=== PATIENT | female | born 1975 | race Caucasian/White ===

== ENCOUNTER 2019-07-13 08:35 | Outpatient (CLI) | payer BC, OTHER ==
--- NOTE | 2019-07-13 09:24 | MMO ---
Bilateral MAMMO Bilat Screen [facility]. CLINICAL HISTORY: Patient is 43 years old and is seen for screening. The patient has no family history of breast cancer. The patient has no personal history of cancer. VIEWS: The views performed were: bilateral craniocaudal with tomosynthesis and bilateral mediolateral oblique with tomosynthesis. This study has been interpreted with the assistance of computer-aided detection. MAMMOGRAM FINDINGS: There are scattered fibroglandular densities. There is a focal asymmetry seen in the anterior region of the right breast at 12 o'clock. In the left breast, there are no suspicious masses, calcifications or areas of architectural distortion. IMPRESSION: FOCAL ASYMMETRY IN THE RIGHT BREAST REQUIRES ADDITIONAL EVALUATION. RECOMMEND DIAGNOSTIC MAMMOGRAM. ULTRASOUND MAY ALSO PROVE USEFUL AT RECALL. THE RESULTS OF THIS EXAM WERE SENT TO THE PATIENT. ACR BI-RADS Category 0 - Incomplete: Need additional imaging evaluation. [facility] will notify the patient of the need for additional imaging services. MAMMOGRAPHY NOTE: 1. A negative mammogram report should not delay a biopsy if a dominant of clinically suspicious mass is present. 2. Approximately 10% to 15% of breast cancers are not detected by mammography. 3. Adenosis and dense breasts may obscure an underlying neoplasm. Reported by: MAGALI RODRÍGUEZ MD Electonically Signed: [id number]
== END 2019-07-13 08:36 | disposition home or self-care (01) ==
LOC: BICMAMMO 08:35
PROVIDERS: ATTEND Family Medicine
DX: Z12.31 Encounter for screening mammogram for malignant neoplasm of breast (principal); N64.89 Other specified disorders of breast
CPT/HCPCS: 77063; 77067

== ENCOUNTER 2019-07-20 09:32 | Outpatient (CLI) | payer BC ==
--- NOTE | 2019-07-20 10:19 | MMO ---
Right Breast MAMMO Unilat Diag [facility]. CLINICAL HISTORY: Patient is 43 years old and is seen for additional evaluation requested from prior study. The patient has no family history of breast cancer. The patient has no personal history of cancer. VIEWS: The views performed were: right craniocaudal spot compression with tomosynthesis; right mediolateral oblique spot compression with tomosynthesis; and right mediolateral with tomosynthesis. FILMS COMPARED: The present examination has been compared to a prior imaging study performed at [facility] on 07/13/2019. This study has been interpreted with the assistance of computer-aided detection. MAMMOGRAM FINDINGS: There are scattered fibroglandular densities. There is a focal asymmetry seen in the upper-outer region of the right breast. Tomosynthesis compression images show the abnormality to represent superimpostion of normal breast parenchyma. There are no suspicious masses, suspicious calcifications, or new areas of architectural distortion. IMPRESSION: THERE IS NO MAMMOGRAPHIC EVIDENCE OF MALIGNANCY. A ROUTINE FOLLOW-UP MAMMOGRAM IN 1 YEAR IS RECOMMENDED. THE RESULTS OF THIS EXAM WERE SENT TO THE PATIENT. ACR BI-RADS Category 2 - Benign finding MAMMOGRAPHY NOTE: 1. A negative mammogram report should not delay a biopsy if a dominant of clinically suspicious mass is present. 2. Approximately 10% to 15% of breast cancers are not detected by mammography. 3. Adenosis and dense breasts may obscure an underlying neoplasm. Reported by: NATHANIEL CORDERO MD Electonically Signed: [id number]
== END 2019-07-20 09:33 | disposition home or self-care (01) ==
LOC: BICMAMMO 09:32
PROVIDERS: ATTEND Family Medicine
DX: R92.2 Inconclusive mammogram (principal)
CPT/HCPCS: G0279

== ENCOUNTER 2019-08-11 09:26 | Outpatient (CLI) | payer BC ==
--- NOTE | 2019-08-11 11:57 | RAD ---
HYSTEROSALPINGOGRAM: CLINICAL HISTORY: Evaluation of prior tubal ligation PROCEDURE: Informed consent was obtained. Utilizing standard sterile speculum exam, the cervix was lo calized and then sterilized with Betadine solution. A small catheter was then utilized to cannulate the endometrial canal, after which a low pressure instillation of contrast was performed, with subseq uent radiographic imaging. No procedural complications were present. Patient tolerated the procedure well. FINDINGS: Endometrial cavity: Unremarkable Fallopian tubes: There is thin linear contrast opacification of proximal to mid fallopian tubes bilat erally. The distal fallopian tubes, and the fimbria are not opacified. There is no free spill into the pelvic cavity. IMPRESSION: Contrast opacification of proximal to mid bilateral fallopian tubes. No contrast opacification of the distal aspect of the fallopian tubes, or evidence of free spill into the pelvic cavity.
== END 2019-08-11 09:27 | disposition home or self-care (01) ==
LOC: RAD 09:26
PROVIDERS: ATTEND Obstetrics & Gynecology
DX: Z31.41 Encounter for fertility testing (principal); N83.8 Other noninflammatory disorders of ovary, fallopian tube and broad ligament
CPT/HCPCS: 58340; 74740

== ENCOUNTER 2023-11-10 18:26 | Observation (INO) | payer BC ==
[2023-11-10 19:12] LABS: #Monocytes 0.4 thou/uL (0.11-0.59); %Basophils 0.1 % (0.0-1.0); %Lymphocytes 13.3 % (21.0-51.0); %Monocytes 3.9 % (0.0-10.0); %Neutrophils 82.4 % (42.0-75.0); Hematocrit 46.8 % (36.0-47.0); Hemoglobin 15.6 g/dL (12.0-16.0); Mean Corpuscular HGB CONC 33.3 g/dL (32.0-36.0); Mean Corpuscular Hemoglobin 29.3 pg (27.0-31.0); Mean Platelet Volume 11.6 fL (7.4-10.4); Platelet Count 251 10x3/uL (130-400); RBC Distribution Width 13.1 % (11.5-14.5); Red Blood Cell (RBC) Count 5.32 mill/uL (4.20-5.40); White Blood Cell (WBC) Count 10.9 10x3/uL (4.8-10.8)
[2023-11-10 19:25] LABS: BHCG - Serum Negative (NEGATIVE); Pregs Control Background? CLEAR/WHITE (CLR/WHITE); Pregs Control Bar Appear? YES (CONTROL BAR)
[2023-11-10 19:35] LABS: ALT (SGPT) 48 U/L (8-55); AST (SGOT) 33 U/L (5-34); Albumin 4.6 g/dL (3.5-5.0); Alkaline Phosphatase 103 U/L (40-110); Anion Gap 11 mmol/L (10-20); BUN (Urea Nitrogen) 10 mg/dL (7.0-18.7); Bilirubin, Total 0.5 mg/dL (0.2-1.2); Calc. Creatinine Clearance 0 mL/min (70-130); Calcium 10.4 mg/dL (7.8-10.44); Carbon Dioxide 25 mmol/L (22-29); Chloride 105 mmol/L (98-107); Estimated GFR 103; Globulin 3.6 g/dL (2.4-3.5); Glucose 114 mg/dL (70-105); Potassium 4.3 mmol/L (3.5-5.1); Protein, Total 8.2 g/dL (6.0-8.3); Sodium 137 mmol/L (136-145)
[2023-11-10 21:06] LABS: Bacteria/HPF 3+ HPF (None Seen); Bilirubin Negative (Negative); Blood, Urine Negative (Negative); CAUTI Indications for Culture Pelvic or flank pain; Clarity Clear (Clear); Glucose, Urine (Dipstick) Normal (Negative); Ketone, Urine 100 mg/dL (Negative); Leukocyte Negative Leu/uL (Negative); Nitrite Negative (Negative); Protein, Urine (Dipstick) 10 mg/dL (Neg-Trace); RBC/HPF 0-3 HPF (0-3); Specific Gravity, Urine 1.026 (1.002-1.036); Urobilinogen Normal mg/dL (Less than 2); WBC/HPF 0-3 HPF (0-3)
[2023-11-10 21:08] LABS: Urine Culture Reflex No No
[2023-11-10] MEDS ORDERED: Morphine 4 MG/ML VIAL ONE (21:27)
[2023-11-10] MEDS ORDERED: Ondansetron PF 4 MG/2 ML Vial ONE (21:27)
[2023-11-10] MEDS ORDERED: Ketorolac Tromethamine 30 MG (1 mL) VIAL ONE (21:51)
[2023-11-10 22:26] LABS: Troponin I Less than 0.010 ng/mL (< 0.028)
[2023-11-11] MEDS ORDERED: Morphine 4 MG/ML VIAL ONE (01:03)
[2023-11-11] MEDS ORDERED: Ondansetron PF 4 MG/2 ML Vial ONE ×2 (01:03→14:02)
[2023-11-11] MEDS ORDERED: Morphine 4 MG/ML VIAL SLOW IVP PRN ×2 (04:24→15:12)
[2023-11-11] MEDS ORDERED: Acetaminophen 325 MG TAB PO PRN (04:30)
[2023-11-11] MEDS ORDERED: Ondansetron PF 4 MG/2 ML Vial IVP PRN (04:30)
[2023-11-11 04:53] VITALS: BMI 41.8
[2023-11-11 07:33] LABS: #Monocytes 0.9 thou/uL (0.11-0.59); #Neutrophils 9.3 thou/uL (1.40-6.50); %Basophils 0.1 % (0.0-1.0); %Lymphocytes 17.4 % (21.0-51.0); %Monocytes 7.2 % (0.0-10.0); %Neutrophils 74.9 % (42.0-75.0); Hematocrit 40.7 % (36.0-47.0); Hemoglobin 13.7 g/dL (12.0-16.0); Mean Corpuscular HGB CONC 33.7 g/dL (32.0-36.0); Mean Corpuscular Volume 89.1 fl (78.0-98.0); Mean Platelet Volume 11.6 fL (7.4-10.4); Platelet Count 237 10x3/uL (130-400); RBC Distribution Width 13.2 % (11.5-14.5); Red Blood Cell (RBC) Count 4.57 mill/uL (4.20-5.40); White Blood Cell (WBC) Count 12.4 10x3/uL (4.8-10.8)
[2023-11-11 07:51] LABS: ALT (SGPT) 39 U/L (8-55); AST (SGOT) 23 U/L (5-34); Albumin 4.2 g/dL (3.5-5.0); Alkaline Phosphatase 86 U/L (40-110); Anion Gap 11 mmol/L (10-20); BUN (Urea Nitrogen) 12 mg/dL (7.0-18.7); Bilirubin, Total 0.4 mg/dL (0.2-1.2); Calc. Creatinine Clearance 162 mL/min (70-130); Calcium 9.6 mg/dL (7.8-10.44); Carbon Dioxide 24 mmol/L (22-29); Chloride 106 mmol/L (98-107); Estimated GFR 106; Glucose 110 mg/dL (70-105); Potassium 3.4 mmol/L (3.5-5.1); Protein, Total 7.2 g/dL (6.0-8.3); Sodium 138 mmol/L (136-145)
[2023-11-11] MEDS ORDERED: Piperacillin/Tazobactam 3.375 GM in Sodium Chloride 0.9% 100 ML IVPB SCH (08:00)
[2023-11-11] MEDS: metroNIDAZOLE 500 MG in Premix 1 BAG IVPB SCH ×3 (09:53→21:01)
[2023-11-11] MEDS: Lactated Ringer's 1,000 ML IV SCH ×3 (09:53→20:14)
[2023-11-11] MEDS ORDERED: Bupivacaine 0.25% HCL 30 ML VIAL ONE (13:17)
[2023-11-11] MEDS ORDERED: EPINEPHrine 1 MG/ML VIAL ONE (13:17)
[2023-11-11] MEDS ORDERED: PROPOFOL 20 ML ONE (13:27)
[2023-11-11] MEDS ORDERED: SUCCINYLCHOLINE/SOD CL,ISO/PF 200 MG/10 ML SYRINGE FS ONE (13:32)
[2023-11-11] MEDS ORDERED: Rocuronium Bromide 10 MG/ML (10ML VIAL) ONE (13:50)
[2023-11-11] MEDS ORDERED: diphenhydrAMINE 50 MG/ML VIAL ONE (13:50)
[2023-11-11] MEDS: Piperacillin/Tazobactam 3.375 GM in Sodium Chloride 0.9% 100 ML IVPB SCH ×2 (14:01→21:02)
[2023-11-11] MEDS ORDERED: Dexamethasone 20 MG/5 ML VIAL ONE (14:02)
[2023-11-11] MEDS ORDERED: fentaNYL PF 100 MCG/2 ML SYRINGE ONE (14:02)
[2023-11-11] MEDS ORDERED: Metoclopramide HCl 10 MG (2 mL) VIAL ONE (14:02)
[2023-11-11] MEDS ORDERED: Ketorolac Tromethamine 30 MG (1 mL) VIAL ONE (14:02)
[2023-11-11] MEDS ORDERED: SUGAMMADEX SODIUM 200 MG/2 ML VIAL ONE (14:10)
[2023-11-11] MEDS ORDERED: HYDROcodone/Acetaminophen 5/325 mg Tablet PO PRN (15:12)
[2023-11-11] MEDS ORDERED: HYDROmorphone 2 MG/ML VIAL SLOW IVP PRN (15:19)
[2023-11-11] MEDS ORDERED: Promethazine HCl 25 MG/ML VIAL IM PRN (15:19)
[2023-11-11] MEDS ORDERED: Ondansetron HCl/PF 4 MG/2 ML Vial IVP PRN (15:19)
[2023-11-11] MEDS ORDERED: fentaNYL 50 mcg/mL 1 mL Vial ONE (15:55)
[2023-11-12] MEDS: Lactated Ringer's 1,000 ML IV SCH ×2 (04:05→09:19)
[2023-11-12 04:48] LABS: #Monocytes 1.1 thou/uL (0.11-0.59); #Neutrophils 11.6 thou/uL (1.40-6.50); %Lymphocytes 9.9 % (21.0-51.0); %Monocytes 7.8 % (0.0-10.0); %Neutrophils 81.9 % (42.0-75.0); Hematocrit 37.8 % (36.0-47.0); Hemoglobin 12.5 g/dL (12.0-16.0); Mean Corpuscular HGB CONC 33.1 g/dL (32.0-36.0); Mean Corpuscular Hemoglobin 29.5 pg (27.0-31.0); Mean Corpuscular Volume 89.2 fl (78.0-98.0); Mean Platelet Volume 12.1 fL (7.4-10.4); Platelet Count 238 10x3/uL (130-400); RBC Distribution Width 13.2 % (11.5-14.5); Red Blood Cell (RBC) Count 4.24 mill/uL (4.20-5.40); White Blood Cell (WBC) Count 14.1 10x3/uL (4.8-10.8)
[2023-11-12 05:17] LABS: ALT (SGPT) 70 U/L (8-55); AST (SGOT) 49 U/L (5-34); Albumin 3.6 g/dL (3.5-5.0); Alkaline Phosphatase 77 U/L (40-110); Anion Gap 12 mmol/L (10-20); BUN (Urea Nitrogen) 8 mg/dL (7.0-18.7); Bilirubin, Total 0.6 mg/dL (0.2-1.2); Calc. Creatinine Clearance 150 mL/min (70-130); Carbon Dioxide 21 mmol/L (22-29); Chloride 107 mmol/L (98-107); Estimated GFR 96; Globulin 3.1 g/dL (2.4-3.5); Glucose 140 mg/dL (70-105); Potassium 3.3 mmol/L (3.5-5.1); Protein, Total 6.7 g/dL (6.0-8.3); Sodium 137 mmol/L (136-145)
[2023-11-12 05:18] LABS: ALT (SGPT) 75 U/L (8-55); AST (SGOT) 49 U/L (5-34); Albumin 3.7 g/dL (3.5-5.0); Alkaline Phosphatase 79 U/L (40-110); Bilirubin, Direct 0.3 mg/dL (0.1-0.3); Bilirubin, Total 0.6 mg/dL (0.2-1.2); Protein, Total 6.3 g/dL (6.0-8.3)
[2023-11-12] MEDS: metroNIDAZOLE 500 MG in Premix 1 BAG IVPB SCH (05:20)
[2023-11-12] MEDS: Piperacillin/Tazobactam 3.375 GM in Sodium Chloride 0.9% 100 ML IVPB SCH (05:20)
[2023-11-12 05:55] VITALS: TEMP 98.8
[2023-11-12] MEDS ORDERED: Potassium Chloride 20 MEQ TAB PO SCH (06:00)
[2023-11-12] MEDS ORDERED: Senokot S 8.6-50 MG TAB PO SCH (09:00)
[2023-11-12 11:39] VITALS: BP 108/74
== END 2023-11-12 11:55 | disposition home or self-care (01) ==
LOC: ERS 18:26 → SJJU 11-11 01:21
PROVIDERS: ADMIT Surgery; ATTEND Surgery
PROC: 0FT44ZZ Resection of Gallbladder, Percutaneous Endoscopic Approach (ICD-10-PCS; principal; 2023-11-11)
DX: K80.12 Calculus of gallbladder with acute and chronic cholecystitis without obstruction (principal); I10 Essential (primary) hypertension
CPT/HCPCS: 36415; 76705; 80053; 81001; 83690; 84484; 84703; 85025; 88304; 96361; 96374; 96375; 96376; A4649; C1713; G0378; J0171; J0665; J1100; J1200; J1885; J2270; J2405; J2543; J2704; J2765; J3010; J3490; J7120